=== PATIENT | male | born 1950 | race Two or more races ===

== ENCOUNTER 2025-09-27 05:50 | Emergency (ER) | payer OTHER ==
[~2025-09-27] VITALS: Ht 180.3 cm; Wt 90.7 kg
[2025-09-27 06:35] VITALS: PULSE 111; RESP 14; O2SAT 96
--- NOTE | 2025-09-27 06:37 | ED.PDOC ---
History of Present Illness(SKN HPI Comments 75 year old male with PMHx DM, HTN, a-fib, CVA-LT sided deficits presents to the ED via EMS with a chief complaint of wound check onset today. Per EMS, patient had wound care nurse visit yesterday, dressing was changed, was advised to go to ED due to gangrene of RT great toe. Patient is currently on antibiotics, has picc line in place. Patient is currently experiencing pain to RT foot, upon EMS arrival temperature was 102 F. Denies nausea, vomiting, diarrhea, headache, dizziness, chest pain, shortness of breath. No other symptoms or modifying factors present at this time. Chief Complaint: Wound Check Time Seen by MD: 06:15 History of Present Illness: Medications, Allergies Allergies: Coded Allergies: NO KNOWN ALLERGIES (Unverified , 09/27/25) Information Source: Patient, Emergency Med Personnel Mode of Arrival: EMS Severity: Moderate Timing: Hours Duration: Since onset Prehospital treatment: Other Location: Foot Associated Signs and Symptoms: Other Past Medical History PAST MEDICAL HISTORY: AFIB, CVA, DM, HTN Surgical History: Denies all surgeries Family History Family History: Reviewed,noncontributory to illness, No family hx of Cancer, No family hx of DM, No family hx of Heart laci, No family hx of HTN, No family hx ofKidney laci, No family hx of Liver laci, No family hx of Lung laci, No family hx of Stroke Social History Smoker: Non-Smoker Alcohol: Denies ETOH Use Drugs: Denies Drug Use Lives In: Home Constitutional: denies: chills, diaphoresis, fatigue, fever, malaise, sweats, weakness, others EENTM: denies: blurred vision, double vision, ear bleeding, ear discharge, ear drainage, ear pain, ear ringing, eye pain, eye redness, hearing loss, mouth pain, mouth swelling, nasal discharge, nose bleeding, nose congestion, nose pain, photophobia, tearing, throat pain, throat swelling, voice changes, others Respiratory: denies: cough, hemoptysis, orthopnea, SOB at rest, shortness of breath, SOB with excertion, stridor, wheezing, others Cardiovascular: denies: chest pain, dizzy spells, diaphoresis, Dyspnea on exertion, edema, irregular heart beat, left arm pain, lightheadedness, palpitations, PND, syncope, others Gastrointestinal: denies: abdomen distended, abdominal pain, blood streaked bowels, constipated, diarrhea, dysphagia, difficulty swallowing, hematemesis, melena, nausea, poor appetite, poor fluid intake, rectal bleeding, rectal pain, vomiting, others Genitourinary: denies: burning, dysuria, flank pain, frequency, hematuria, incontinence, penile discharge, penile sore, pain, testicle pain, testicle swelling, urgency, others Neurological: denies: dizziness, fainting, headache, left sided numbness, left sided weakness, numbness, paresthesia, pre-existing deficit, right sided numbness, right sided weakness, seizure, speech problems, tingling, tremors, weakness, others Musculoskeletal: reports: others (RT foot pain); denies: back pain, gout, joint pain, joint swelling, muscle pain, muscle stiffness, neck pain Integumetry: reports: others (gangrene RT great toe); denies: bruises, change in color, change in hair/nails, dryness, laceration, lesions, lumps, rash, wounds Allergic/Immunocompromised: denies: Difficulty Healing, Frequent Infections, Hives, Itching, others Hematologic/Lymphatic: denies: anemia, blood clots, easy bleeding, easy bruising, swollen glands, others Endocrine: denies: excessive hunger, excessive sweating, excessive thirst, excessive urination, flushing, intolerance to cold, intolerance to heat, unexplained weight gain, unexplained weight loss, others Psychiatric: denies: anxiety, bipolar disorder, depression, hopeless, panic disorder, schizophrenia, sleepless, suicidal, others All Other Systems: Reviewed and Negative Physical Exam General Appearance: Moderate Distress, Normal HEENT: Normal ENT Inspection, Pharynx Normal, TMs Normal Neck: Full Range of Motion, Non-Tender, Normal, Normal Inspection Respiratory: Chest Non-Tender, Lungs Clear, No Accessory Muscle Use, No Respiratory Distress, Normal Breath Sounds Cardiovascular: Irregular, No Edema, No JVD, No Murmur, No Gallop, Normal Peripheral Pulses Breast Exam: Deferred Gastrointestinal: No Organomegaly, Non Tender, No Pulsatile Mass, Normal Bowel Sounds, Soft Genitalia: Deferred Pelvic: Deferred Rectal: Deferred Extremities: No calf tenderness, Normal capillary refill, Normal range of motion, Non-tender, No pedal edema Musculoskeletal : Apperance: Normal Neurologic: Alert, technical maintenance technician II-XII nml as Tested, No Motor Deficits, Normal Affect, Normal Mood, No Sensory Deficits Cerebellar Function: Normal Reflexes: Normal Skin: Dry, Normal Color, Warm, Wounds (Necrotic right great toe) Peripheral Pulses: 3+ Radial (R), 3+ Radial (L) Lymphatic: No Adenopathy Was a procedure done? Was a procedure done?: No EKG EKG : Pulse Rate (adult): 114 Cardiac Rhythm: Afib Differential Diagnosis (INTG) Differential Diagnosis: Cellulitis, Hematoma X-Ray, Labs, Meds, VS Vital Signs Date Time Temp Pulse Resp B/P (MAP) Pulse Ox O2 Delivery O2 Flow Rate FiO2 09/27/25 08:23 90 09/27/25 07:54 106 15 99 Nasal Cannula* 2 28 09/27/25 07:40 98.4 106 15 180/93 (122) 99 98.4 09/27/25 06:37 114 09/27/25 06:35 111 14 96 Nasal Cannula* 3 32 09/27/25 06:32 98.3 111 12 152/80 (104) 97 98.3 09/27/25 06:16 114 09/27/25 05:57 99.5 118 20 148/90 95 99.5 Lab Test 09/27/25 06:50 Range/Units White Blood Count 11.5 H 4.4-10.8 10^3/uL Red Blood Count 4.12 L 4.5-5.90 10^6/uL Hemoglobin 12.6 L 13.5-17.5 g/dL Hematocrit 38.7 L 41.0-53.0 % Mean Corpuscular Volume 93.9 80.0-100.0 fL Mean Corpuscular Hemoglobin 30.7 28.0-32.0 pg Mean Corpuscular Hemoglobin Concent 32.7 32.0-36.0 g/dL Red Cell Distribution Width 15.3 H 11.8-14.3 % Platelet Count 312 140-450 10^3/uL Mean Platelet Volume 9.7 6.9-10.8 fL Neutrophils (%) (Auto) 82.2 H 37.0-80.0 % Lymphocytes (%) (Auto) 7.0 L 10.0-50.0 % Monocytes (%) (Auto) 7.6 0.0-12.0 % Eosinophils (%) (Auto) 2.7 0.0-7.0 % Basophils (%) (Auto) 0.5 0.0-2.0 % Neutrophils # (Auto) 9.5 H 1.6-8.6 10 ^3/uL Lymphocytes # (Auto) 0.8 0.4-5.4 10 ^3/uL Monocytes # (Auto) 0.9 0-1.3 10 ^3/uL Eosinophils # (Auto) 0.3 0-0.8 10 ^3/uL Basophils # (Auto) 0.1 0-0.2 10 ^3/uL Nucleated Red Blood Cells 0.0 % Prothrombin Time 12.7 H 9.3-11.8 sec Prothrombin Time INR 1.22 H 0.9-1.15 Activated Partial Thromboplast Time 37.0 H 24.5-34.5 SEC Sodium Level 144 136-145 mmol/L Potassium Level 3.5 3.5-5.1 mmol/L Chloride Level 104 98-107 mmol/L Carbon Dioxide Level 29 20-31 mmol/L Anion Gap 11 5-15 Blood Urea Nitrogen 10 9-23 mg/dL Creatinine 1.32 H 0.700-1.30 mg/dL Glomerular Filtration Rate Calc 56 >90 mL/min BUN/Creatinine Ratio 7.6 L 10.0-20.0 Serum Glucose 93 74-106 mg/dL Lactic Acid Level 0.9 0.4-2.0 mmol/L Calcium Level 9.2 8.7-10.4 mg/dL Total Bilirubin 0.5 0.2-1.0 mg/dL Aspartate Amino Transferase (AST) 46 H 13-40 U/L Alanine Aminotransferase (ALT) 41 H 7-40 U/L Alkaline Phosphatase 93 46-116 U/L Total Protein 7.5 5.7-8.2 g/dL Albumin 4.4 3.2-4.8 g/dL Current Medications Medications (Trade) Dose Ordered Sig/Kimberli Route Start Time Stop Time Status Last Admin Sodium Chloride 1,000 ml @ 1,000 mls/hr Q1H ONCE IV 09/27/25 06:45 09/27/25 07:44 DC 09/27/25 06:55 Sodium Chloride 1,000 ml @ 150 mls/hr Q6H40M ONCE IV 09/27/25 06:45 09/27/25 13:24 09/27/25 07:49 Cefepime HCl 50 ml @ 50 mls/hr ONCE ONCE IV 09/27/25 07:00 09/27/25 07:59 DC 09/27/25 08:20 Clindamycin Phosphate 50 ml @ 50 mls/hr ONCE ONCE IV 09/27/25 07:00 09/27/25 07:59 DC 09/27/25 07:01 Patient alert. Complaining of pain in the right toe. On examination he does have discoloration of the foot along with a necrotic great toe. Blood pressure elevated. EKG reviewed does show atrial fibrillation. Placed on oxygen. Sepsis protocol. Explained to the patient. Continue monitoring. [place] approved inpatient admission [phone]. [place] [address] Ph: [phone] DIAGNOSTIC IMAGING Diagnostic Imaging Report : [id number] Signed PATIENT: JESS MYERS ACCT: [id number] UNIT: [id number] : 1950 LOC: ER ROOM / BED: / AGE / SEX: 75 / M ADM STATUS: REG ER SERVICE 8 ORDERING PHYSICIAN: SHAYLA SIERRA MD PROCEDURE(s): CXRP - CHEST PORTABLE REASON: sob ORDER NUMBER(s): [id number], ACCESSION NUMBER(s): [id number] CHEST RADIOGRAPH Indication: sob Technique: Single frontal view of the chest was obtained Comparison: None FINDINGS: Lines and Tubes: There is a left PICC with its tip terminating in the superior vena cava. Lungs: No focal consolidation. Pleura: No effusion. No pneumothorax. Cardiomediastinal contours: Cardiomegaly. Bones: No acute osseous abnormality. IMPRESSION: 1. Cardiomegaly. 2. No acute pulmonary disease. ATED BY: JIGAR HADLEY MD DICTATED DATE/TIME: 09/27/25745 SIGNED BY: JIGAR HADLEY MD SIGNED DATE/TIME: 09/27/25745 CC: Time of 1ST Reevaluation: 06:45 Reevaluation 1ST: Unchanged Patient Education/Counseling: Diagnosis, Treatment, Prognosis Family Education/Counseling: No Family Present SEPSIS Sepsis Screen Date sepsis recognized/suspect: Sep 27, 2025 Time Sepsis recognized/suspect: 06 Recent Procedure: No On Antibiotic Therapy: No Respiratory Rate >20: No Heart Rate >90: Yes Temp<36 C (96.8 F) or >38.3 C: No SBP <90 or MAP <65 mmHG: No New Acute Mental Status Change: No Is the patient on CPAP, BIPAP,: No Physician Orders Electrocardigram (09/27/25 06:25) Urinalysis (09/27/25 06:39) Chest Portable (09/27/25 06:39) Accucheck (09/27/25 06:39) Blood Culture (09/27/25 06:39) Cefepime 1gm/50ml (Maxipime 1gm/50ml) (09/27/25 16:00) Notify Md If Map <65 Or Bp<90 (09/27/25 06:39) If Map<65 Start Vasopressor (09/27/25 06:39) Sepsis Reassesment After Fluid (09/27/25 07:39) Sodium Chloride 0.9% (09/27/25 06:45) Vital Signs Date Time Temp Pulse Resp B/P (MAP) Pulse Ox O2 Delivery O2 Flow Rate FiO2 09/27/25 08:23 90 09/27/25 07:54 106 15 99 Nasal Cannula* 2 28 09/27/25 07:40 98.4 106 15 180/93 (122) 99 98.4 09/27/25 06:37 114 09/27/25 06:35 111 14 96 Nasal Cannula* 3 32 09/27/25 06:32 98.3 111 12 152/80 (104) 97 98.3 09/27/25 06:16 114 09/27/25 05:57 99.5 118 20 148/90 95 99.5 Laboratory Tests Test 09/27/25 06:50 Lactic Acid Level 0.9 mmol/L (0.4-2.0) White Blood Count 11.5 10^3/uL (4.4-10.8) H Medications Medications Dose Ordered Sig/Kimberli Route Start Time Stop Time Status Last Admin Dose Admin Cefepime HCl 50 ml @ 50 mls/hr ONCE ONCE IV 09/27/25 07:00 09/27/25 07:59 DC 10/27/25 08:20 Clindamycin Phosphate 50 ml @ 50 mls/hr ONCE ONCE IV 09/27/25 07:00 09/27/25 07:59 DC 09/27/25 07:01 Sodium Chloride 1,000 ml @ 150 mls/hr Q6H40M ONCE IV 09/27/25 06:45 09/27/25 13:24 09/27/25 07:49 Sodium Chloride 1,000 ml @ 1,000 mls/hr Q1H ONCE IV 09/27/25 06:45 09/27/25 07:44 DC 09/27/25 06:55 Departure 1 Departure Time of Disposition: 07:00 Impression: Primary Impression: Atrial fibrillation Qualified Codes: I48.0 - Paroxysmal atrial fibrillation Additional Impression: Sepsis Qualified Codes: A41.9 - Sepsis, unspecified organism Disposition: ADMITTED INPATIENT Admit to: Med Surg Condition: Guarded Critical Care Note Critical Care Time?: Yes (90 min-critical care time only) Stability Stability form required: No Heart Score Heart Score: Heart Score Response (Comments) Value History Slightly Suspicious 0 EKG Normal 0 Age >65 2 Risk Factors >3 or Hx ASHD 2 Troponin Normal limit 0 Total 4 I personally scribed for SHAYLA SIERRA MD ([email or web address]) on 09/27/25 at 06:37. Electronically submitted by Tennille Jha ([email or web address]). I personally scribed for SHAYLA SIERRA MD ([email or web address]) on 09/27/25 at 08:06. Electronically submitted by Tennille Jha ([email or web address]). SHAYLA SIERRA MD Sep 27, 2025 06:37
[2025-09-27] MEDS: SODIUM CHLORIDE 0.9% 1,000 ML IV ONE ×2 (06:55→07:49)
[2025-09-27] MEDS: CLINDAMYCIN 300MG IV 50 ML IV ONE (07:01)
[2025-09-27] MEDS: CEFEPIME 1GM/50ML D5W or NS KIT IV ONE (07:10)
[2025-09-27 07:11] LABS: Hematocrit 38.7 % (41.0-53.0); Hemoglobin 12.6 g/dL (13.5-17.5); Mean Corpuscular Hemoglobin 30.7 pg (28.0-32.0); Mean Corpuscular Volume 93.9 fL (80.0-100.0); Nucleated Red Blood Cells % 0.0 %
[2025-09-27 07:31] LABS: INR 1.22 (0.9-1.15); Partial Thromboplastin Time 37.0 SEC (24.5-34.5); Prothrombin Time 12.7 sec (9.3-11.8)
[2025-09-27 07:35] LABS: Albumin 4.4 g/dL (3.2-4.8); Alkaline Phosphatase 93 U/L (46-116); Anion Gap 11 (5-15); BUN/Creatinine Ratio 7.6 (10.0-20.0); Blood Urea Nitrogen 10 mg/dL (9-23); Calcium 9.2 mg/dL (8.7-10.4); Carbon Dioxide 29 mmol/L (20-31); Chloride 104 mmol/L (98-107); Glucose 93 mg/dL (74-106); Sodium 144 mmol/L (136-145); Total Protein 7.5 g/dL (5.7-8.2)
[2025-09-27 07:36] LABS: Bilirubin, Total 0.5 mg/dL (0.2-1.0)
[2025-09-27 07:39] LABS: Alanine Aminotransferase 41 U/L (7-40); Potassium 3.5 mmol/L (3.5-5.1)
[2025-09-27 07:40] VITALS: TEMP 98.4
--- NOTE | 2025-09-27 07:49 | DVH ---
CHEST RADIOGRAPH Indication: sob Technique: Single frontal view of the chest was obtained Comparison: None FINDINGS: Lines and Tubes: There is a left PICC with its tip terminating in the superior vena cava. Lungs: No focal consolidation. Pleura: No effusion. No pneumothorax. Cardiomediastinal contours: Cardiomegaly. Bones: No acute osseous abnormality. IMPRESSION: 1. Cardiomegaly. 2. No acute pulmonary disease.
[2025-09-27 07:54] VITALS: PULSE 106; RESP 15; O2SAT 99
[2025-09-27] MEDS: AMIODARONE BOLUS KIT 100 ML IV ONE (09:35)
--- NOTE | 2025-09-27 09:55 | ECG ---
[facility] Test Date: 2025-09-27 Test Time: 06:16:24 Pat Name: JESS MYERS Department: [facility] ED Patient ID: [facility]-[id number] Room: Gender: M [employer] Teacher: toshia : 1950 Requested By: SHAYLA SIERRA Order Number: [id number] Reading MD: Bradley Farr Measurements Intervals Lamar Rate: 114 P: 0 NH: 0 QRS: -16 QRSD: 101 T: 119 QT: 309 QTc: 426 Interpretive Statements Atrial fibrillation Borderline left axis deviation Borderline repolarization abnormality Electronically Signed On 09-27-2025 15:18:51 PDT by Bradley Farr Please click the below link to view image of tracing.
[2025-09-27 10:00] VITALS: BP 160/90; PULSE 105; RESP 11; O2SAT 98
[2025-09-27] MEDS ORDERED: CEFEPIME 1GM/50ML 50 ML IV SCH (16:00)
== END 2025-09-27 11:46 | disposition left against medical advice (07) ==
LOC: ER 05:50 → EDBD 05:50 → ER 11:46
DX: I48.0 Paroxysmal atrial fibrillation (principal); A41.9 Sepsis, unspecified organism; I10 Essential (primary) hypertension; E11.52 Type 2 diabetes mellitus with diabetic peripheral angiopathy with gangrene; Z86.73 Personal history of transient ischemic attack (TIA), and cerebral infarction without residual deficits
CPT/HCPCS: 36415; 71045; 80053; 83605; 85025; 85610; 85730; 87040; 93005; 96365; 96367; 96375; 99291; 99292; J0692; J3490; J7030